=== PATIENT | female | born 1990 ===

== ENCOUNTER 2020-08-19 08:55 | Inpatient (IN) | payer OTHER, SELFPAY ==
[2020-08-19] VITALS (39 sets, daily range): BP systolic 97–189; BP diastolic 51–129
[~2020-08-19] VITALS: Ht 152.4 cm; Wt 66.0 kg
[2020-08-19] MEDS ORDERED: GNP28TAB2 PO (09:19)
[2020-08-19] MEDS ORDERED: LACTATED RINGER'S 1000 ML IV STA (10:13)
[2020-08-19] MEDS ORDERED: OXYTOCIN DRIP 30 UNITS in IV 1 EA IV PRN (10:15)
--- NOTE | 2020-08-19 10:51 | HPEPDOC ---
Obstetrical History & Physical General Date of Admission Aug 19, 2020 at 09:12 History of Present Illness 30 yo at 40w4d with ROMANA of 15 AUG 2020 presents to L&D grossly SROM'd wi th clear fluid since 0800 this morning and painful contractions since last night. She reports bloody show and positive movement. Chief Complaint: Contractions, term, LOF, term Age: 30 : 2 Term: 0 Pre-term: 0 Abortions: 1 Livin Care Care: Good Care Dating Final EDC: Aug 15, 2020 Final EDC for Daily Update: Aug 15, 2020 Final EDC by: LMP, 1st trimester (US) LMP: Nov 09, 2019 1st Trimester Date: Jan 18, 2020 Weeks + Days: 40 (+4) Estimated Date of Confinement: Aug 15, 2020 EGA at Admission: 40 (+4) Antepartum Course Height (inches): 60 Pre- weight (lbs.): 114 Admission Weight (lbs.): 144 Change in Weight (lbs.): 30 Past Medical History Past Obstetrical History : Past Obstetrical History: Primgravida [employer] History: No pertinent history Past Medical History Medical History Denies Surgical History: Other (Benign breast lumpectomy 2016) Family History Significant Family History: Hypertension, Other (Thyroid disease) Social History Marital Status: Family situation: Spouse/partner home Psychosocial History: No pertinent psych hx * Smoker: non-smoker Alcohol: Denies Drugs: denies Abuse Violence Screening Have you been hit/kicked/slapp: No Have you been sexually assault: No Imunizations Tdap status: current Allergies Coded Allergies: No Known Allergies (Unverified , 08/19/20) Medications Scheduled Pnv No.95/Ferrous Fum/Folic AC ( Vitamins Tablet) 1 Each Tablet, 1 TAB PO DAILY Physical Examination Physical Examination GENERAL: Alert and oriented times three. BREAST: . ABDOMEN: Gravid and non-tender to touch. FETUS: Is vertex (VTX) by sterile vaginal examination (SVE), fetus is vertex (VTX) by Ronald. HEART RATE: Regular rate and rhythm. LUNGS: Clear to auscultation (CTA). EXTREMITIES: No edema. No clonus. Deep tendon reflexes (DTRs) + 2. Vital Signs/I&O Vital Signs Date Time Temp Pulse Resp B/P (MAP) Pulse Ox O2 Delivery O2 Flow Rate FiO2 08/19/20 09:16 99.3 90 18 125/57 (79) 97 Laboratory Data 24H LABS Laboratory Tests 2 08/19/20 10:13: Serology Scanned Report Hepatitis B Testing Pertinent Laboratoy Data Blood Type: A+ RBC Antibody Screen: Negative HIV: Negative Hepatitis B: Negative Rapid Plasma Reagin: Nonreactive Rubella: Immune Varicella: Immune Chlamydia/Gonorrhea: Negative Group B Streptococcus: Negative Quad Screen Test: Negative Cystic Fibrosis: Negative Glucose Tolerance Test: 79 Anatomy Ultrasound Normal Anatomy: Yes Placenta Previa: No Steroid Therapy Steroid Therapy: No Vaginal Examination Dilation: 3 cm (3-4) Effacement: 80% Station: -2 Cervical Consistency: Soft Cervical Position: Middle Presentation: Cephalic presentation Position: Vertex (occiput) Assessment Heart Rate (FHR): 135 Variability: Moderate Accelerations: Present Decelerations: None Tocometer Contractions: Yes Frequency: every 2-5 min. Multi-drug resistant Organism: No history of MDRO Assessment/Plan Assessment 30 yo at 40w4d with ROMANA of 15 AUG 2020 presents to L&D grossly SROM'd with clear fluid since 0800 this morning and painful contractions since last night. She reports bloody show and positive movement. Plan Admit and orient. Rehab Trainer and consent. Diet: clear liquids. Group B Streptococcus (GBS) negative. Labs and intravenous (IV) per unit protocol. Counseled on Pitocin and induction of labor (IOL). Lactated Ringers (LR): Bolus 1000 mL, then at 125 mL/hr. Pain management on demand Anticipate normal spontaneous delivery (). C-S as appropriate. Labor and Delivery Counseling Discussed plan for and risks for labor, hemorrhage, shoulder dystocia, and the need for section as appropriate. CARLI SMALL CNM Aug 19, 2020 10:27
[2020-08-19 10:52] LABS: HEMOGLOBIN 14.4 g/dl (12.0-15.5); MEAN CORPUSCULAR HEMOGLOBIN 28.7 pg (27.0-33.0); MEAN CORPUSCULAR HGB CONC 33.5 g/dl (32.0-36.5); MEAN CORPUSCULAR VOLUME 85.8 fl (80.0-96.0); PLATELET COUNT, AUTOMATED 262 10^3/uL (150-450); RED BLOOD COUNT 5.01 10^6/uL (4.00-5.40); WHITE BLOOD COUNT 18.4 10^3/uL (4.0-10.0)
[2020-08-19] MEDS ORDERED: FENTANYL 2MCG/ML ROPIVACAINE 0.2% IN 0.9% NACL 100ML IVBAG As Ordered ONE (11:04)
[2020-08-19] MEDS ORDERED: EPIDURAL/PCA KEYS XX PRN (11:25)
[2020-08-19] MEDS ORDERED: diphenhydrAMINE 50MG/ML VIAL (J1200) IV PRN ×2 (11:25→18:30)
[2020-08-19] MEDS ORDERED: EPIDURAL COMMENT XX SCH (11:25)
[2020-08-19] MEDS ORDERED: LACTATED RINGER'S 1000 ML IV PRN (11:25)
[2020-08-19] MEDS ORDERED: FENTANYL/ROPIVACAINE/NACL BAG 100 ML EPIDURAL SCH (11:25)
[2020-08-19] MEDS ORDERED: ONDANSETRON 4MG/2ML VIAL IV PRN ×3 (11:25→19:10)
[2020-08-19] MEDS ORDERED: REFRIGERATOR IV KEYS XX PRN (11:25)
[2020-08-19] MEDS ORDERED: NALOXONE INJ 0.4MG/1ML VIAL (J2310 PER 1MG) IV PRN ×3 (11:25→18:30)
[2020-08-19] MEDS: ePHEDrine SULFATE 25 MG/5 ML(5MG/ML) SYRINGE IV PRN ×6 (11:55→14:22)
[2020-08-19] MEDS: LR 1,000 ML IV SCH ×2 (12:11→14:56)
--- NOTE | 2020-08-19 12:22 | IPNPDOC ---
Obstetrical Progress Note Date of Service Aug 19, 2020 Subjective 30 yo at 40w4d admitted for labor. She has supportive family at the bedside. She is now comfortable with her epidural. 9 minute decel noted post epidural. Objective Vital Signs Date Time Temp Pulse Resp B/P (MAP) Pulse Ox O2 Delivery O2 Flow Rate FiO2 08/19/20 09:16 99.3 90 18 125/57 (79) 97 IUPC and FSE placed without difficulty Multiple interventions used: position change, IV fluid bolus Ephedrine ordered and given with good return of FHT back to baseline after administration. Assessment Heart Rate (FHR): 135 Variability: Moderate Accelerations: None Decelerations: Early, Prolonged Tocometer Contractions: Yes Duration: other (every 5-6 minutes) Sterile Vaginal Examination Dilation: 6 cm Effacement (%): 90% Station: -1 Postion/Presentation: Cephalic presentation Assessment and Plan Age: 30 : 2 Term: 0 Pre-term: 0 Abortions: 1 Livin Weeks & Days 40w4d Group B Streptococcus: Negative Anticipate: Vaginal Delivery Additional Comments Dr. Montes was updated on patient status and we also discussed starting pitocin in about 30 minutes as contractions are now spaced to 5-6 minutes and he agrees with this plan. CARLI SMALL CNM Aug 19, 2020 12:21
[2020-08-19] MEDS ORDERED: OXYTOCIN DRIP 30 UNITS in IV 1 EA IV SCH ×2 (12:25→18:55)
--- NOTE | 2020-08-19 16:35 | IPNPDOC ---
Text Note Date of Service The patient was seen on 08/19/20. NOTE Ms. Garnica is a 30 yo who was admitted this morning for SROM and labor. She received an epidural and there has been some difficulties with maternal hypotension and FHR decels this afternoon. Pitocin was started about 1 hour ago, but hasn't been able to be increased above 2mU secondary to intermittent late and variable decels. She received an amnioinfusion previously. She had a temporal temperature of 101.4, but no oral temperature >100.2. Most recent temp 99.9 orally. Chaperoned by RN Cervix: C/C/0. Trial push with minimal descent. Clear fluid. No foul odor. Fundus: no tenderness FHR tracing - Cat II, moderate variability, +accels, intermittent late decels that are not persistent. No tachycardia. Fever maybe related to epidural placement. Chorioamnionitis seems less likely at this time, as she has not had an oral temperature >100.4. Nor is there tachycardia. Will continue to monitor closely. Will also obtain urine culture. Will allow for a period of passive descent and close monitoring of tolerance to labor. Will then begin pushing. I discussed with Bette and her that their baby may not tolerate second stage well. If there are persistent late decels before or during pushing and delivery does not appear imm inent, she may require a section. All patient and questions answered. DO GIULIANA Montes Fishbone, I+O Faustina GIORDANO, I+O Laboratory Tests 08/19/20 10:28 Vital Signs Date Time Temp Pulse Resp B/P (MAP) Pulse Ox O2 Delivery O2 Flow Rate FiO2 08/19/20 15:24 100.2 08/19/20 15:23 121 18 97/51 (66) 08/19/20 09:16 97 FRAN MONTES DO Aug 19, 2020 16:35
[2020-08-19] MEDS ORDERED: AMPICILLIN 2 GM VIAL (J0290 PER 500MG) As Ordered ONE (17:23)
[2020-08-19] MEDS: AMPICILLIN SOD 2 GM in D5W MINI-BAG PLUS 100 ML IV SCH (17:25)
[2020-08-19] MEDS ORDERED: ACETAMINOPHEN 500 MG TAB PO ONE (17:25)
[2020-08-19] MEDS ORDERED: BICITRA 30ML SOLN UDC As Ordered ONE (17:43)
[2020-08-19] MEDS ORDERED: AZITHROMYCIN INJ 500 MG, VIAL MATE ADAPTER 1 EACH in NS 250 ML IV ONE (17:45)
[2020-08-19] MEDS: BICITRA 30ML SOLN UDC PO SCH (17:50)
[2020-08-19] MEDS ORDERED: KETOROLAC 60MG 2ML VIAL As Ordered ONE (17:51)
[2020-08-19] MEDS ORDERED: ONDANSETRON 4MG/2ML VIAL As Ordered ONE (17:51)
[2020-08-19] MEDS ORDERED: dexameTHASONE 4 MG/ML 1ML VIAL (J1100 PER 1MG) As Ordered ONE (17:51)
[2020-08-19] MEDS ORDERED: OXYTOCIN INJ 10 UNITS/ML VIAL (J2590) As Ordered ONE (17:51)
[2020-08-19] MEDS ORDERED: SODIUM BICARBONATE 8.4% INJ 50 ML SYRINGE As Ordered ONE (17:56)
[2020-08-19] MEDS ORDERED: LIDOCAINE 2% W/EPINEPHRINE 20ML VIAL **PRES FREE As Ordered ONE (17:56)
[2020-08-19] MEDS: CLINDAMYCIN 900 MG in IV 1 EA IV SCH (18:00)
--- NOTE | 2020-08-19 18:00 | IPNPDOC ---
Text Note Date of Service The patient was seen on 08/19/20. NOTE Bette has been pushing for about the last hour. FHR has been Cat II, but there are late decels down to the 60s after almost every push. Fetus at 0 to +1 station, ROT. Chorio recently diagnosed with now oral temp over 100.4. Amp, gent, and clinda ordered. I discussed my concern with Bette. She is likely to be pushing for more than another hour at least. Most recently she had a 3 minute FHR decel down to the 60s. There has been minimal descent with pushing efforts. I recommended section due to NRFHT, remote from delivery. Fetus is too high for operative vaginal delivery. We discussed all risks of c sections to include, but not limited to, bleeding requiring blood transfusion, risk of infection, risk of injury to bowel, bladder, or other structures which could require additional surgery, risk of hysterectomy as a life saving maneuver and even risk of and/or maternal . She verbalized understanding of these risks and elected to proceed. Consents signed. Will give azithromycin in OR. All patient questions answered. DO GIULIANA Montes Fishbone, I+O Faustina GIORDANO, I+O Laboratory Tests 08/19/20 10:28 Vital Signs Date Time Temp Pulse Resp B/P (MAP) Pulse Ox O2 Delivery O2 Flow Rate FiO2 08/19/20 16:23 99.9 08/19/20 16:22 125 18 114/56 (75) 08/19/20 09:16 97 FRAN MONTES DO Aug 19, 2020 18:00
[2020-08-19] MEDS ORDERED: METOCLOPRAMIDE INJ 10MG/2ML VIAL (J2765 PER 1) As Ordered ONE (18:16)
[2020-08-19] MEDS ORDERED: PHENYLephrine 500MCG 5ML (100MCG/ML) SYRINGE As Ordered ONE (18:19)
[2020-08-19 18:26] LABS: CORD GAS ABE A -11.9; CORD GAS ABE V -10.6; CORD GAS HCO3 A 16.4 MEQ/L; CORD GAS HCO3 V 17.6 MEQ/L; CORD GAS O2 SAT A 38.5 %; CORD GAS O2 SAT V 36.9 %; CORD GAS PCO2 A 45.8 mmHg; CORD GAS PCO2 V 46.9 mmHg; CORD GAS PH A 7.172 UNITS; CORD GAS PH V 7.192 UNITS; CORD GAS SBC A 14.1 MEQ/L; CORD GAS TCO2 A 17.8 MEQ/L
[2020-08-19] MEDS ORDERED: METOCLOPRAMIDE INJ 10MG/2ML VIAL (J2765 PER 1) IV PRN (18:30)
[2020-08-19] MEDS ORDERED: NALBUPHINE HCL 10 MG/ML AMP (J2300) IV PRN ×2 (18:30→19:10)
[2020-08-19] MEDS ORDERED: MORPHINE PRES-FREE INJ 10 MG/10 ML VIAL (J2274) As Ordered ONE (18:36)
[2020-08-19] MEDS ORDERED: KETOROLAC 30 MG/ML 1ML VIAL IV PRN (18:39)
[2020-08-19] MEDS ORDERED: MEASLES,MUMPS,RUBELLA VACCINE INJ (MMR-II) (90707) SC SCH (18:55)
[2020-08-19] MEDS ORDERED: PERCOCET 5MG/325MG TAB PO PRN ×2 (18:55)
[2020-08-19] MEDS ORDERED: PROMETHAZINE 25 MG TAB PO PRN (18:55)
[2020-08-19] MEDS ORDERED: SIMETHICONE 80MG CHEW TAB PO PRN (18:55)
[2020-08-19] MEDS ORDERED: RHOGAM 300 MCG (1500 IU) INJ (J2790) IM SCH (18:55)
[2020-08-19] MEDS ORDERED: fentaNYL 100 MCG/2 ML INJECTION (J3010) IV PRN (19:10)
[2020-08-19] MEDS ORDERED: LR 1,000 ML IV SCH (19:10)
[2020-08-19] MEDS ORDERED: MEPERIDINE INJ 25 MG/ML VIAL (J2175) IV ONE (19:15)
[2020-08-19] MEDS: GENTAMICIN IV SCH (19:17)
[2020-08-19] MEDS: D5W IV SCH (19:17)
[2020-08-19] MEDS ORDERED: MEPERIDINE INJ 25 MG/ML VIAL (J2175) As Ordered ONE (19:19)
[2020-08-20] MEDS: AMPICILLIN SOD 2 GM in D5W MINI-BAG PLUS 100 ML IV SCH ×4 (00:16→18:06)
[2020-08-20 00:45] VITALS: BP 116/59
[2020-08-20] MEDS: KETOROLAC 30 MG/ML 1ML VIAL IV SCH ×3 (01:24→12:11)
[2020-08-20] MEDS: CLINDAMYCIN 900 MG in IV 1 EA IV SCH ×2 (04:20→12:54)
[2020-08-20 06:00] VITALS: BP 109/60
[2020-08-20 08:24] LABS: HEMATOCRIT 33.1 % (36.0-47.0); MEAN CORPUSCULAR HGB CONC 32.9 g/dl (32.0-36.5); PLATELET COUNT, AUTOMATED 214 10^3/uL (150-450); RED BLOOD COUNT 3.76 10^6/uL (4.00-5.40); WHITE BLOOD COUNT 23.6 10^3/uL (4.0-10.0)
[2020-08-20 08:27] LABS: HEMOGLOBIN 10.9 g/dl (12.0-15.5)
--- NOTE | 2020-08-20 08:40 | IPNPDOC ---
Progress Note Date of Service: Aug 20, 2020 Progress Note Ms. Garnica is a 30 yo G2 now P1 who underwent an uncomplicated PLTCS yesterday evening for NRFHT in the setting of chorioamnionitis. She reports feeling well today, just sore. She has been ambulatory and is tolerating a regular diet. Pain is well controlled. Lochia is minimal. in the NICU due to chorioamnionitis diagnosis. Vitals - VSS, afebrile, normotensive, nontachycardic General - AAOX3, sitting up in bed, NAD Abdomen - Fundus firm at U-2. No fundal tenderness. Optifoam dressing in place over incision with minimal strikethrough. Minimal tenderness to palpation. Extremities - No edema UO - adequate Labs: Pre op H/H 14.4/43.0 ---> AM H/H 10.9/33.1 Ms. Garnica is doing well and is making an appropriate postoperative / recovery. Continue IV antibiotics for at least 24 hours post delivery due to intra amniotic infection. Encourage ambulation today. Will remove chu catheter when appropriate and monitor for DTV. All patient questions answered. Fran Montes, DO VS, I&O, 24H, Fishbone Vital Signs/I&O Vital Signs Date Time Temp Pulse Resp B/P (MAP) Pulse Ox O2 Delivery O2 Flow Rate FiO2 08/20/20 06:00 98.7 94 18 109/60 (76) 97 Room Air I&O- Last 24 Hours up to 6 AM 08/20/20 06:00 Intake Total 5230.7 ml Output Total 3175 ml Balance 2055.7 ml Laboratory Data 24H LABS Laboratory Tests 2 08/19/20 10:13: Serology Scanned Report Hepatitis B Testing 08/19/20 10:28: Nucleated Red Blood Cells % (auto) 0.0, Syphilis Serology NONREACTIVE 08/19/20 16:15: Urine Color YELLOW, Urine Appearance HAZY, Urine pH 6.0, Urine Specific [place] 1.014, Urine Protein 1+H, Urine Glucose (UA) NEGATIVE, Urine Ketones 2+H, Urine Blood 3+H, Urine Nitrite NEGATIVE, Urine Bilirubin NEGATIVE, Urine Urobilinogen 0.2, Urine Leukocyte Esterase TRACEH, Urine WBC (Auto) 7H, Urine RBC (Auto) TNTCH, Urine Hyaline Casts (Auto) 0, Urine Bacteria (Auto) NEGATIVE, Urine Squamous Epithelial Cells 0, Urine Mucus (Auto) SMALL, Urine Sperm (Auto) 08/19/20 18:17: Cord Arterial Blood pH 7.172, Cord Arterial Blood PCO2 45.8, Cord Arterial Blood PO2 21.0, Cord Arterial Blood HCO3 16.4, Cord Arterial Blood Total CO2 17.8, Co rd Arterial Blood Base Excess -11.9, Cord Arterial Base Excess (Standard 14.1, Cord Arterial Bld Oxygen Saturation 38.5, Cord Venous Blood pH 7.192, Cord Venous Blood PCO2 46.9, Cord Venous Blood PO2 21.0, Cord Venous Blood HCO3 17.6, Cord Venous Blood Total CO2 19.0, Cord Venous Base Excess (Actual) -10.6, Cord Venous Base Excess (Standard) 15.0, Cord Venous Blood Oxygen Saturation 36.9 08/20/20 07:47: Nucleated Red Blood Cells % (auto) 0.0 CBC/BMP Laboratory Tests 08/19/20 10:28 08/20/20 07:47 Microbiology Microbiology 08/19/20 Urine Culture, Received Pending FRAN MONTES DO Aug 20, 2020 08:40
[2020-08-20] MEDS: PRENATAL VITAMINS CHEWABLE TABLET PO SCH ×2 (09:00→12:11)
--- NOTE | 2020-08-20 09:39 | RO ---
OPERATIVE NOTE DATE OF OPERATION: 08/19/2020 PREOPERATIVE DIAGNOSIS: 1. Nonreassuring heart tracing remote from delivery. 2. Intra amniotic infection POSTOPERATIVE DIAGNOSES: 1. Nonreassuring heart rate tracing remote from delivery. 2. Thick meconium. 3. Intra amniotic infection PROCEDURE: Primary low transverse section. SURGEON: Javed Montes D.O. CLINICAL SAFETY SPECIALIST: Saul Johnson MD; whose assistance with exposure, retraction, visualization, and delivery of the infant was essential to completion of the case. ANESTHESIA: Epidural. IV FLUIDS: 1500 mL LR. URINE OUTPUT: 100 mL via Brand catheter. ESTIMATED BLOOD LOSS: 700 mL. ANTIBIOTICS: Ampicillin 2gm, clindamycin 900mg, gentamicin 330mg, and azithromycin 500mg. COMPLICATIONS: None. OPERATIVE FINDINGS: Thick meconium noted upon entry into the uterus. Male infant found and delivered in right occiput transverse (ROT) presentation. apgars were 8 and 9. weight was 3240 grams. Normal appearing uterus. Normal appearing fallopian tubes and ovaries bilaterally. Cord gases were arterial 7.17 pH with a base excess of -11.9 and venous pH was 7.19 with base excess of -10.6. DESCRIPTION OF PROCEDURE: The risks, benefits, indications, and alternatives of the procedure were reviewed with the patient and informed consent was obtained. The patient was taken to the operating room where epidural anesthesia was found to be adequate. She was then prepped and draped in the usual sterile fashion in the dorsal supine position with a leftward tilt. A surgical timeout was then performed where the patient's identity and planned procedure were verified with the operating team. A pfannenstiel skin incision was then made with a scalpel and carried through to the underlying layer of fascia. The fascia was incised in the midline and incision was extended laterally with Fontenot scissors. The superior aspect of the fascial incision was grasped with alaina clamps, elevated, and the underlying rectus muscles were dissected off with Fontenot scissors. Attention was then turned to the inferior aspect of this incision, which in a similar fashion was grasped, tented up with alaina clamps, and the rectus muscles were dissected off with Fontenot scissors. The rectus muscles were then at the midline. The peritoneum was identified, tented up, and entered digitally. The peritoneal incision was then extended horizontally and superiorly with good visualization of the bladder. A Mobius self-containing retractor was then placed into the abdomen as a means for exposure. The vesicouterine peritoneum was then identified, nicked with a scalpel, and a bladder flap was created digitally. Next, the lower uterine segment was incised in a transverse fashion with a scalpel. Thick meconium stained fluid was noted upon entry into the uterus. The uterine incision was then extended manually in a superolateral fashion. The was found to be in cephalic right occiput transverse (ROT) presentation. The patient was then delivered without difficulty through the hysterotomy site. The cord was then doubly clamped and cut. The was handed off to the waiting pediatricians. Cord gases were obtained. The placenta was then removed with gentle traction on the umbilical cord. The uterus was then cleared of all clots and debris. The uterine incision was repaired with 0-Monocryl suture in a running locked fashion. A second layer of 0-Monocryl was then used to imbricate the hysterotomy in a vertical fashion. An additional [id number] suture of 0-Monocryl was used in the midline of the hysterotomy to achieve excellent hemostasis. Irrigation was then performed. The pericolic gutters were then inspected and cleared of all clots and debris. The hysterotomy was inspected and again found to be hemostatic. The Mobius self- retaining retractor was then removed from the abdomen. The patient's peritoneum was then closed with a 3-0 Vicryl suture in a running fashion. The fascia was then closed with 0-Vicryl suture in a running fashion. The subcutaneous fat was closed with 3-0 Vicryl suture in a running fashion. The skin was then closed with 4-0 Monocryl suture in a subcuticular fashion. Steri-Strips were then applied to the incision and an Optifoam dressing was then applied over top. At the completion of the case a bimanual exam was performed which revealed good uterine tone and minimal vaginal bleeding. The patient tolerated the procedure well. Sponge, instrument, and needle counts were correct x3. The patient was taken to the recovery room in stable condition. KIANA
[2020-08-20 14:00] VITALS: BP 118/56
[2020-08-20 17:59] VITALS: BP 124/64
[2020-08-20] MEDS: D5W IV SCH (18:43)
[2020-08-20] MEDS: GENTAMICIN IV SCH (18:43)
[2020-08-20] MEDS: IBUPROFEN 800 MG TAB PO SCH (20:19)
[2020-08-20 22:00] VITALS: BP 115/58
[2020-08-21 02:00] VITALS: BP 101/50
[2020-08-21] MEDS: IBUPROFEN 800 MG TAB PO SCH ×2 (04:27→12:26)
[2020-08-21] MEDS: BICITRA 30ML SOLN UDC PO SCH (04:30)
[2020-08-21 06:00] VITALS: BP 102/54
[2020-08-21] MEDS ORDERED: PERCOCET PO (08:51)
[2020-08-21] MEDS ORDERED: IBUP80TA PO (08:51)
--- NOTE | 2020-08-21 09:04 | DSES ---
DISCHARGE SUMMARY DATE OF ADMISSION: 08/19/2020 DATE OF DISCHARGE: 08/21/2020 BRIEF HISTORY: This lady is a 30-year-old 2 now para 1 who was admitted at 40 and 4 weeks of gestation with spontaneous rupture of membranes and contractions. She had a primary section for non-reassuring heart tones, remote from delivery, chorioamnionitis and meconium stained. Delivered a live male weighing 3240 grams, Apgars of 8 and 9 at 1 and 5 minutes respectively. Arterial pH 7.17, base excess -11.9, venous pH 7.19, base excess -10.6. On her second day we discussed phlebitis, cystitis, mastitis, endometritis, and cellulitis, diet, exercise, pain management, perineal, breast and wound care. Her meds were dispensed at [facility]. She is to have a two week incision check, a six week check at [facility]. PHYSICAL EXAMINATION: On examination today her blood pressure is 102/54, respirations are 17, pulse 79, temperature 98.6. Her admitting hemoglobin was 14.4, hematocrit 43.0 and platelets were 262,000. Discharge hemoglobin 10.9, hematocrit 33.1 and platelets are 214,000. The rest of the examination is unremarkable. Normocephalic, atraumatic. Neck: Full range of motion. Pupils equal and reactive to light. Distal pulses are symmetric. No evidence of DVT, PE or superficial phlebitis. Chest is clear bilaterally to bases. No wheezes or rhonchi. No CVA tenderness. Four quadrant bowel sounds are noted. Uterus: Two below. Lochia is moderate. The incision has Steri-Strips and is clean and dry. No rashes, lesions or pruritus. No arthralgias or myalgias. No complaint of joint pain. No complaint of cough, wheeze, shortness of breath or dyspnea on exertion. No nausea, vomiting, diarrhea or constipation. No urgency or frequency. IMPRESSION: In summary, we have a term gestation, primary section for non-reassuring heart tones. All questions were answered, a 20 minute discussion. The patient was discharged improved to either boarder status or at home, awaiting the baby who is still on IV for the diagnosis of chorioamnionitis. The patient's highest temperature was 100.1 on 08/19 at 2145. cc: Diego Warner WASH MILL OPERATOR MTDD
[2020-08-21 11:00] VITALS: BP 106/72
[2020-08-21] MEDS: PRENATAL VITAMINS CHEWABLE TABLET PO SCH (11:16)
[2020-08-21 14:00] VITALS: BP 115/64
== END 2020-08-21 15:15 | disposition home or self-care (01) | DRG 771 ==
LOC: M LDO 08:55 → M LDI 09:12 → M OBS 21:33
PROVIDERS: ADMIT Registered Nurse Maternal Newborn; ATTEND Obstetrics & Gynecology
PROC: 10D00Z1 Extraction of Products of Conception, Low, Open Approach (ICD-10-PCS; principal; 2020-08-19 18:44)
DX: O48.0 Post-term pregnancy (principal); O41.1230 Chorioamnionitis, third trimester, not applicable or unspecified; Z3A.40 40 weeks gestation of pregnancy; O76 Abnormality in fetal heart rate and rhythm complicating labor and delivery; O77.0 Labor and delivery complicated by meconium in amniotic fluid; Z37.0 Single live birth

== ENCOUNTER 2022-01-03 20:03 | Outpatient (CLI) | payer OTHER ==
[~2022-01-03] VITALS: Ht 144.8 cm; Wt 66.9 kg
[~2022-01-03 20:03] MED LIST: GNP28TAB2 PO; IBUP80TA PO; PERCOCET PO
[2022-01-03 20:28] VITALS: BP 119/65
[2022-01-03] MEDS ORDERED: HOME MED LIST COMPLETE! XX SCH (20:45)
[2022-01-03] MEDS ORDERED: FLUCONAZOLE 50MG TABLET PO ONE (22:00)
== END 2022-01-03 21:46 | disposition home or self-care (01) ==
LOC: M LDO 20:03
PROVIDERS: ATTEND Obstetrics & Gynecology
DX: O26.852 Spotting complicating pregnancy, second trimester (principal); Z3A.26 26 weeks gestation of pregnancy; O34.219 Maternal care for unspecified type scar from previous cesarean delivery
CPT/HCPCS: 59025; 76815; 81000; 81015; 87086; G0463

== ENCOUNTER 2022-04-06 20:22 | Inpatient (IN) | payer OTHER ==
[~2022-04-06] VITALS: Ht 152.4 cm; Wt 78.2 kg
[2022-04-06] MEDS ORDERED: OXYTOCIN 30 UNITS IN 0.9% NaCl 500ML IV BAG (J2590) As Ordered ONE (20:23)
[2022-04-06] MEDS ORDERED: LIDOCAINE 1% MDV 20ML VIAL As Ordered ONE (20:38)
[2022-04-06 21:05] LABS: CORD GAS ABE V -5.5; CORD GAS HCO3 V 22.6 MEQ/L; CORD GAS PCO2 V 53.2 mmHg; CORD GAS PH V 7.246 UNITS; CORD GAS PO2 V 29.7 mmHg; CORD GAS SBC V 19.2 MEQ/L; CORD GAS TCO2 V 24.2 MEQ/L
[2022-04-06 21:05] LABS: CORD GAS ABE A -8.7; CORD GAS HCO3 A 20.9 MEQ/L; CORD GAS O2 SAT A 79.1 %; CORD GAS PCO2 A 58.9 mmHg; CORD GAS PH A 7.167 UNITS; CORD GAS PO2 A 41.8 mmHg; CORD GAS SBC A 17.2 MEQ/L; CORD GAS TCO2 A 22.7 MEQ/L
[2022-04-06] MEDS ORDERED: DOCUSATE SODIUM 100MG CAPSULE PO PRN (21:20)
[2022-04-06] MEDS ORDERED: METHYLERGONOVINE MALEATE 0.2 MG TAB PO PRN (21:20)
[2022-04-06] MEDS ORDERED: RHOGAM 300 MCG (1500 IU) INJ (J2790) IM SCH (21:20)
[2022-04-06] MEDS ORDERED: OXYTOCIN DRIP 30 UNITS in IV 1 EA IV SCH ×4 (21:20)
[2022-04-06] MEDS ORDERED: DIBUCAINE 1% OINTMENT 30GM TOP PRN (21:20)
[2022-04-06] MEDS ORDERED: ACETAMINOPHEN TAB 650MG DOSE (2X325MG) PO PRN (21:20)
[2022-04-06] MEDS ORDERED: ACETAMINOPHEN 500 MG TAB PO PRN (21:20)
[2022-04-06] MEDS ORDERED: IBUPROFEN 600MG TAB PO PRN (21:20)
[2022-04-06] MEDS ORDERED: LIDOCAINE 1% MDV 20ML VIAL SC ONE (21:45)
[2022-04-06 22:26] VITALS: BP 132/72
[2022-04-07 06:00] VITALS: BP 115/67
[2022-04-07] MEDS: PRENATAL VITAMINS CHEWABLE TABLET PO SCH (10:59)
[2022-04-07] MEDS: IBUPROFEN 800 MG TAB PO PRN (16:26)
[2022-04-07 18:00] VITALS: BP 120/65
[2022-04-08 06:00] VITALS: BP 104/57
[2022-04-08] MEDS: PRENATAL VITAMINS CHEWABLE TABLET PO SCH (08:20)
[2022-04-08] MEDS: IBUPROFEN 800 MG TAB PO PRN (08:21)
[2022-04-08] MEDS ORDERED: MEASLES,MUMPS,RUBELLA VACCINE INJ (MMR-II) (90707) SC.IMMUN ONE (09:00)
[2022-04-08] MEDS ORDERED: ACET1TAB55 PO (10:46)
[2022-04-08] MEDS ORDERED: IBUP-1022 PO (10:46)
[2022-04-08] MEDS ORDERED: COLA100C5 PO (10:46)
== END 2022-04-08 12:24 | disposition home or self-care (01) | DRG 807 ==
LOC: M LDO 20:22 → M LDI 20:31 → M OBS 22:25
PROVIDERS: ADMIT Obstetrics & Gynecology; ATTEND Obstetrics & Gynecology
PROC: 10D07Z6 Extraction of Products of Conception, Vacuum, Via Natural or Artificial Opening (ICD-10-PCS; principal; 2022-04-06)
PROC: 0KQM0ZZ Repair Perineum Muscle, Open Approach (ICD-10-PCS; 2022-04-06)
DX: O62.3 Precipitate labor (principal); Z37.0 Single live birth; Z3A.39 39 weeks gestation of pregnancy; O34.211 Maternal care for low transverse scar from previous cesarean delivery; O99.824 Streptococcus B carrier state complicating childbirth; O70.1 Second degree perineal laceration during delivery